=== PATIENT | female | born 1980 | race Caucasian/White ===

== ENCOUNTER 2017-11-20 08:17 | Emergency (ER) | payer OTHER ==
[2017-11-20] MEDS: ONDANSETRON (ODT) 4 MG TAB ODT (08:44)
[2017-11-20] MEDS: ACETAMINOPHEN 325 MG TAB PO (08:44)
[2017-11-20 08:47] LABS: URINE BLOOD (Dip) POC Negative (NEGATIVE); URINE KETONES (Dip) POC Negative (NEGATIVE); URINE LEUKOCYTE EST (Dip) POC Trace (NEGATIVE); URINE NITRITE (Dip) POC Negative (NEGATIVE); URINE TOTAL PROTEIN POC Negative (NEGATIVE)
== END 2017-11-20 09:19 | disposition home or self-care (01) ==
LOC: FTE 08:17
DX: R11.10 Vomiting, unspecified (principal); R19.7 Diarrhea, unspecified; R50.9 Fever, unspecified; E11.9 Type 2 diabetes mellitus without complications; Z79.4 Long term (current) use of insulin
CPT/HCPCS: 81003; 81025; 99283

== ENCOUNTER 2018-03-09 09:41 | Emergency (ER) | payer OTHER ==
[2018-03-09 10:47] LABS: URINE BLOOD (Dip) POC Negative (NEGATIVE); URINE KETONES (Dip) POC Trace (NEGATIVE); URINE LEUKOCYTE EST (Dip) POC 1+ (NEGATIVE); URINE NITRITE (Dip) POC Negative (NEGATIVE); URINE TOTAL PROTEIN POC Negative (NEGATIVE)
[2018-03-09 10:47] LABS: URINE PH (Dip) POC 5.5 (5.0-8.5)
== END 2018-03-09 11:27 | disposition home or self-care (01) ==
LOC: FTE 09:41
DX: J06.9 Acute upper respiratory infection, unspecified (principal); N39.0 Urinary tract infection, site not specified; E11.9 Type 2 diabetes mellitus without complications; Z79.4 Long term (current) use of insulin
CPT/HCPCS: 81003; 99282

== ENCOUNTER 2018-09-02 06:15 | Emergency (ER) | payer OTHER | END 2018-09-02 06:43 | disposition home or self-care (01) | LOC: FTE 06:43 | DX: J06.9 Acute upper respiratory infection, unspecified (principal); I10 Essential (primary) hypertension; E11.9 Type 2 diabetes mellitus without complications; Z79.4 Long term (current) use of insulin | CPT/HCPCS: 99283; Z7502 ==